=== PATIENT | female | born 1965 | race Caucasian/White ===

== ENCOUNTER 2016-04-16 15:42 | Inpatient (IN) | payer OTHER ==
[~2016-04-16] VITALS: Ht 170.2 cm; Wt 157.4 kg
[~2016-04-16 15:42] MED LIST: ASPIRIN325 MG PO; CEFDINIR300 MG PO; CRESTOR20 MG PO; CYMBALTA PO; CYMBALTA60 MG PO; DIOVAN80 MG PO; FISH OIL 1,0001 EACH PO; FISH OIL SOFTG1 EACH PO; FUROSEMIDE40 MG PO; GLIPIZIDE10 MG PO; GLUCOPHAGE1000 MG PO; GLUCOTROL10 MG PO; LANTUS 10100 UNITS/ SC; LANTUS 3 M100 UNITS1 SC; LANTUS100 UNIT/1 SQ; LASIX40 MG PO; LOPRESSOR25 MG PO; LOPRESSOR50 MG PO; LOSARTAN POTASS50 MG PO; LYRICA150 MG PO; LYRICA75 MG PO; METANX1 TABLET PO; MULTI-BETIC TA1 EACH PO; MULTIVITAMIN1 EAC2 PO; NOVOLOG PE100 UNITS/ SC; TYLENOL EXTRA500 MG PO; XARELTO20 MG PO; ZITHROMAX250 MG PO
[2016-04-16 17:14] LABS: ADD MIUA? YES; BILIRUBIN NEGATIVE; BLOOD NEGATIVE; COLOR YELLOW ((YELLOW)); GLUCOSE (STRIP) NEGATIVE; KETONES NEGATIVE; LEUKOCYTES NEGATIVE; NITRITE NEGATIVE; PROTEIN (STRIP) NEGATIVE; SPECIFIC GRAVITY 1.016 (1.000-1.030); UROBILINOGEN 0.2 MG/DL (0.2-1.0)
[2016-04-16 17:23] LABS: BACTERIA RARE /HPF; EPITHELIAL CELLS 1+ /HPF; HYALINE CASTS 0-5 /LPF; MUCUS TRACE /LPF; RED BLOOD CELLS 0-5 /HPF (0-5); WHITE BLOOD CELLS 0-5 /HPF (0-5)
[2016-04-16 17:25] LABS: BASOPHIL COUNT 0.1 K/uL (0-0.1); EOSINOPHIL (%) 2.8 % (0-5); EOSINOPHIL COUNT 0.2 K/uL (0-0.3); HEMATOCRIT 42.1 % (36.0-46.0); IMMATURE GRANULOCYTE (%) 0.1 % (0.0-0.7); IMMATURE GRANULOCYTE COUNT 0.1 K/uL; LYMPHOCYTE COUNT 1.4 K/uL (1.0-2.8); MCH 30.5 PG (29.0-34.0); MCHC 33.7 G/DL (30.0-36.0); MCV 90.5 FL (83-99); MEAN PLAT.VOLUME 9.7 uM^3 (9.5-12.4); MONOCYTE (%) 13.9 % (3-12); MONOCYTE COUNT 0.9 K/uL (0-0.8); NEUTROPHIL (%) 61.8 % (45-76); NEUTROPHIL COUNT 4.2 K/uL (1.8-6.4); PLATELET COUNT 333 K/uL (156-360); RBC DIS.WIDTH-CV 13.7 % (11.8-14.6); RBC DIS.WIDTH-SD 44.2 % (39-53); RED BLOOD COUNT 4.65 M/uL (3.80-5.20); WHITE BLOOD COUNT 6.8 K/uL (4.1-10.2)
[2016-04-16 17:35] LABS: CHLORIDE 100 mEq/L (99-109); SODIUM 137 mEq/L (136-147)
[2016-04-16 17:37] LABS: GLUCOSE 218 mg/dL (70-99)
[2016-04-16 17:38] LABS: ANION GAP 9 MEQ/L (2-14)
[2016-04-16 17:41] LABS: GFR ESTIMATE (CALCULATED) > 59 mL/min/
[2016-04-16 17:42] LABS: UREA NITROGEN (BUN) 16 mg/dL (9-23)
[2016-04-16 17:43] LABS: CREATINE KINASE 54 IU/L (1-294)
[2016-04-16 18:15] LABS: INFLUENZA A VIRAL ANTIGEN INVALID ASSAY; INFLUENZA B VIRAL ANTIGEN INVALID ASSAY
[2016-04-16] MEDS ORDERED: LEVEMIR100 UNIT/2 SC (19:53)
[2016-04-16] MEDS ORDERED: ENTRESTO 24 MG1 EACH PO (19:55)
[2016-04-16] MEDS ORDERED: COREG6.25 M1 PO (19:55)
[2016-04-16] MEDS ORDERED: MIRAPEX0.25 MG PO (19:56)
[2016-04-16 22:14] LABS: TROP-I INTERPRETATION NEGATIVE; TROPONIN-I < 0.01 ng/mL (0.0-0.30)
[2016-04-17 00:45] VITALS: BP 159/74
[2016-04-17 00:48] LABS: POINT-OF-CARE METER ID UU13113698
[2016-04-17 03:57] LABS: HEMATOCRIT 40.4 % (36.0-46.0); MCH 30.4 PG (29.0-34.0); MCHC 33.7 G/DL (30.0-36.0); MCV 90.2 FL (83-99); MEAN PLAT.VOLUME 10.1 uM^3 (9.5-12.4); PLATELET COUNT 267 K/uL (156-360); RBC DIS.WIDTH-CV 13.6 % (11.8-14.6); RED BLOOD COUNT 4.48 M/uL (3.80-5.20); WHITE BLOOD COUNT 6.4 K/uL (4.1-10.2)
[2016-04-17 04:06] LABS: CHLORIDE 102 mEq/L (99-109); POTASSIUM 3.7 mEq/L (3.7-5.4); SODIUM 138 mEq/L (136-147)
[2016-04-17 04:08] LABS: GLUCOSE 179 mg/dL (70-99)
[2016-04-17 04:10] LABS: ANION GAP 11 MEQ/L (2-14); TOTAL BILIRUBIN 0.4 mg/dL (0.0-1.0)
[2016-04-17 04:12] LABS: ALKALINE PHOSPHATASE 85 IU/L (3-129); GFR ESTIMATE (CALCULATED) > 59 mL/min/
[2016-04-17 04:13] LABS: UREA NITROGEN (BUN) 17 mg/dL (9-23)
[2016-04-17 04:16] LABS: TROP-I INTERPRETATION NEGATIVE; TROPONIN-I < 0.01 ng/mL (0.0-0.30)
[2016-04-17 05:22] VITALS: BP 104/59
[2016-04-17 08:15] VITALS: BP 88/62
[2016-04-17 10:48] LABS: TROP-I INTERPRETATION NEGATIVE; TROPONIN-I < 0.01 ng/mL (0.0-0.30)
[2016-04-17 11:37] VITALS: BP 105/68
[2016-04-17 15:40] VITALS: BP 102/61
[2016-04-17 16:22] LABS: POINT-OF-CARE METER ID UU14174216
[2016-04-17 21:00] VITALS: BP 112/57
[2016-04-18 00:23] VITALS: BP 119/58
[2016-04-18 06:17] VITALS: BP 141/60
[2016-04-18 06:50] LABS: EOSINOPHIL (%) 8.2 % (0-5); EOSINOPHIL COUNT 0.5 K/uL (0-0.3); HEMATOCRIT 41.6 % (36.0-46.0); IMMATURE GRANULOCYTE (%) 0.2 % (0.0-0.7); LYMPHOCYTE COUNT 1.5 K/uL (1.0-2.8); MCHC 33.4 G/DL (30.0-36.0); MCV 92.7 FL (83-99); MEAN PLAT.VOLUME 10.2 uM^3 (9.5-12.4); MONOCYTE (%) 11.4 % (3-12); MONOCYTE COUNT 0.6 K/uL (0-0.8); NEUTROPHIL (%) 52.7 % (45-76); PLATELET COUNT 264 K/uL (156-360); RBC DIS.WIDTH-CV 13.8 % (11.8-14.6); RBC DIS.WIDTH-SD 46.3 % (39-53); RED BLOOD COUNT 4.49 M/uL (3.80-5.20); WHITE BLOOD COUNT 5.6 K/uL (4.1-10.2)
[2016-04-18 07:17] LABS: ANION GAP 9 MEQ/L (2-14); CHLORIDE 102 MEQ/L (99-109); GFR ESTIMATE (CALCULATED) > 59 mL/min/; GLUCOSE 149 mg/dL (70-99); POTASSIUM 4.2 MEQ/L (3.7-5.4); SAMPLE HEMOLYSIS CHECK 0; SAMPLE ICTERIC CHECK 0; SAMPLE LIPEMIA CHECK 0; SODIUM 141 MEQ/L (136-147); UREA NITROGEN (BUN) 17 mg/dL (9-23)
[2016-04-18 07:55] LABS: POINT-OF-CARE METER ID UU14174216
[2016-04-18 08:30] VITALS: BP 100/62
[2016-04-18 09:26] LABS: INFLUENZA A VIRAL ANTIGEN NEGATIVE; INFLUENZA B VIRAL ANTIGEN POSITIVE
[2016-04-18 11:54] LABS: POINT-OF-CARE METER ID UU14174216
[2016-04-18 12:17] VITALS: BP 98/52
[2016-04-18 16:25] LABS: POINT-OF-CARE METER ID UU14174216
[2016-04-18 16:32] VITALS: BP 98/60
[2016-04-18 19:21] VITALS: BP 118/64
[2016-04-19 00:10] VITALS: BP 110/59
[2016-04-19 03:35] LABS: POINT-OF-CARE METER ID UU14174216
[2016-04-19 04:41] VITALS: BP 112/60
[2016-04-19 06:41] LABS: HEMATOCRIT 41.6 % (36.0-46.0); MCH 29.8 PG (29.0-34.0); MCHC 32.5 G/DL (30.0-36.0); MCV 91.8 FL (83-99); MEAN PLAT.VOLUME 10.2 uM^3 (9.5-12.4); PLATELET COUNT 270 K/uL (156-360); RBC DIS.WIDTH-CV 13.6 % (11.8-14.6); RBC DIS.WIDTH-SD 45.2 % (39-53); RED BLOOD COUNT 4.53 M/uL (3.80-5.20); WHITE BLOOD COUNT 4.6 K/uL (4.1-10.2)
[2016-04-19 07:10] LABS: ANION GAP 7 MEQ/L (2-14); CHLORIDE 102 MEQ/L (99-109); GFR ESTIMATE (CALCULATED) > 59 mL/min/; GLUCOSE 265 mg/dL (70-99); MAGNESIUM 1.7 mg/dl (1.3-2.7); POTASSIUM 4.1 MEQ/L (3.7-5.4); SAMPLE HEMOLYSIS CHECK 0; SAMPLE ICTERIC CHECK 0; SAMPLE LIPEMIA CHECK 0; SODIUM 139 MEQ/L (136-147); UREA NITROGEN (BUN) 20 mg/dL (9-23)
[2016-04-19 08:41] VITALS: BP 110/60
[2016-04-19 11:33] LABS: POINT-OF-CARE METER ID UU13113781
[2016-04-19 12:19] VITALS: BP 106/62
[2016-04-19 16:12] VITALS: BP 120/68
[2016-04-19 16:27] LABS: POINT-OF-CARE METER ID UU14174216
[2016-04-19 20:12] VITALS: BP 122/66
[2016-04-20] VITALS (7 sets, daily range): BP systolic 93–135; BP diastolic 53–82
[2016-04-20 06:53] LABS: ANION GAP 9 MEQ/L (2-14); CHLORIDE 103 MEQ/L (99-109); GFR ESTIMATE (CALCULATED) > 59 mL/min/; GLUCOSE 147 mg/dL (70-99); POTASSIUM 3.3 MEQ/L (3.7-5.4); SAMPLE HEMOLYSIS CHECK 0; SAMPLE ICTERIC CHECK 0; SAMPLE LIPEMIA CHECK 0; SODIUM 144 MEQ/L (136-147); UREA NITROGEN (BUN) 21 mg/dL (9-23)
[2016-04-20 07:31] LABS: POINT-OF-CARE METER ID UU13113698
[2016-04-20 10:50] LABS: POINT-OF-CARE METER ID UU13113698
[2016-04-20] MEDS ORDERED: DUONEB 2.5-0.5 M3 ML AEROSOL (11:34)
[2016-04-20] MEDS ORDERED: DIGOXIN250 MCG PO (11:34)
[2016-04-20] MEDS ORDERED: BENZONATATE100 MG PO (11:34)
[2016-04-20] MEDS ORDERED: OSELTAMIVIR PHO75 MG PO (11:34)
[2016-04-20] MEDS ORDERED: PREDNISONE20 MG PO (11:34)
[2016-04-20] MEDS ORDERED: PREDNISONE10 MG PO ×3 (11:34)
[2016-04-21 03:41] VITALS: BP 119/68
[2016-04-21 07:36] LABS: POINT-OF-CARE METER ID UU13113698
[2016-04-21 08:00] VITALS: BP 121/78
[2016-04-21 11:30] VITALS: BP 125/66
[2016-04-21] MEDS ORDERED: DIGITEK125 MC2 PO (13:56)
== END 2016-04-21 16:00 | disposition home or self-care (01) | DRG 189 ==
LOC: EME 15:42 → 4EAST 20:50 → EDOF 20:50 → 4EAST 23:50 → EDOF 23:52 → 4EAST 04-17 00:09
PROVIDERS: Internal Medicine; Physician Assistant
DX: J96.01 Acute respiratory failure with hypoxia (principal); I50.33 Acute on chronic diastolic (congestive) heart failure; I95.9 Hypotension, unspecified; I42.9 Cardiomyopathy, unspecified; E11.42 Type 2 diabetes mellitus with diabetic polyneuropathy; I11.0 Hypertensive heart disease with heart failure; Z68.43 Body mass index [BMI] 50.0-59.9, adult; I48.2 Chronic atrial fibrillation; Z87.891 Personal history of nicotine dependence; J44.9 Chronic obstructive pulmonary disease, unspecified; G47.33 Obstructive sleep apnea (adult) (pediatric); J10.1 Influenza due to other identified influenza virus with other respiratory manifestations; R91.8 Other nonspecific abnormal finding of lung field; Z79.4 Long term (current) use of insulin; E78.5 Hyperlipidemia, unspecified; Z79.84 Long term (current) use of oral hypoglycemic drugs; F32.9 Major depressive disorder, single episode, unspecified; E66.9 Obesity, unspecified
CPT/HCPCS: 71020; 71250; 80048; 80053; 81003; 82550; 82948; 83735; 83880; 84484; 85025; 85027; 87502; 93005; 93306; 94640; 94640 76; 94760; 94799; 99202; 99281; 99285; J1815; J1940; J7030; J7512